=== PATIENT | female | born 1955 | race Caucasian/White ===

== ENCOUNTER → 2017-03-15 | Outpatient (CLI) | payer BC ==
[~2017-03-15] MED LIST: CAND1TAB2 PO; METF500T8 PO; PRAV40TA PO
--- NOTE | 2017-03-15 14:04 | Diagnostic Imaging Report ---
INDICATION: Posterior knee pain for one year. No known injury. TECHNIQUE: 3 views of the right knee CORRELATION STUDY: None FINDINGS: Moderate joint space narrowing particularly medially. Mild marginal osteophyte formation both medially and laterally. There does appear to be very mild degree of chondrocalcinosis. Also narrowing of the patellofemoral compartment spur formation. IMPRESSION: Advanced multicompartment degenerative changes of the right knee most pronounced at patellofemoral as well as medial compartments. Dictated by: Dictated on workstation # [id number]
== END ==
LOC: RAD 10:21
PROVIDERS: ATTEND Nurse Practitioner Family
DX: M25.561 Pain in right knee (principal)
CPT/HCPCS: 73562

== ENCOUNTER → 2018-03-22 | Outpatient (CLI) | payer BC ==
--- NOTE | 2018-03-22 15:26 | Diagnostic Imaging Report ---
INDICATION: Routine screening. COMPARISON: 11/12/2014. TECHNIQUE: 2D and 3D bilateral screening mammography was performed with CAD. FINDINGS: Both breasts are heterogeneously dense, limiting the sensitivity of mammography. No dominant mass or malignant appearing microcalcifications are seen. There are benign calcifications bilaterally. The axillae are unremarkable. IMPRESSION: No mammographic features suspicious for malignancy are identified. ACR BI-RADS Category 2: Benign findings. Result letter will be mailed to the patient. Note: At least 10% of breast cancer is not imaged by mammography. Dictated by: Dictated on workstation # [id number]
== END ==
LOC: RAD 09:20
DX: Z12.31 Encounter for screening mammogram for malignant neoplasm of breast (principal)
CPT/HCPCS: 77067